=== PATIENT | female | born 1990 | race Caucasian/White ===

== ENCOUNTER 2018-08-24 16:35 | Outpatient (CLI) | payer BC ==
[~2018-08-24] VITALS: Ht 149.9 cm; Wt 86.6 kg
[2018-08-24] MEDS ORDERED: FLINTSTONES COM1 CT1 PO (17:00)
== END 2018-08-24 17:45 | disposition home or self-care (01) ==
LOC: LDRO 16:35
DX: O36.8120 Decreased fetal movements, second trimester, not applicable or unspecified (principal); Z3A.24 24 weeks gestation of pregnancy

== ENCOUNTER 2018-10-21 12:25 | Outpatient (CLI) | payer BC ==
[~2018-10-21] VITALS: Ht 147.3 cm; Wt 92.7 kg
[~2018-10-21 12:25] MED LIST: FLINTSTONES COM1 CT1 PO
[2018-10-21 12:35] VITALS: BP 123/60; PULSE 96; TEMP 98.2
--- NOTE | 2018-10-21 12:51 | NUR ---
Patient ambulatory to unit accompanied by spouse. Patient states that this morning she was coughing and noticed vaginal leaking and has since felt wet. Patient states she currently has Influenza A. Patient sounds hoarse. Assessment completed. Patient states baby has been active and denies vaginal bleeding. FHR and contraction monitors placed and explained. SVE cervix closed/thick, amniotest negative. Patient coughs during SVE and no leaking noted on glove. Patient state she has been having some contractions and her lower back hurts. Will call for further orders.
--- NOTE | 2018-10-21 13:10 | NUR ---
1310: Infant very active while trying to trace FHR. FHR monitors adjusted and tracing well. 1350: Patient off monitors. Discharge instructions reviewed with patient and verbalizes understanding.
[2018-10-21 13:50] VITALS: BP 130/69; PULSE 91
== END 2018-10-21 13:55 | disposition home or self-care (01) ==
LOC: LDRO 12:25
DX: O98.513 Other viral diseases complicating pregnancy, third trimester (principal); J09.X2 Influenza due to identified novel influenza A virus with other respiratory manifestations; Z3A.34 34 weeks gestation of pregnancy

== ENCOUNTER 2018-11-11 14:46 | Outpatient (CLI) | payer BC ==
[~2018-11-11] VITALS: Ht 147.3 cm; Wt 93.2 kg
--- NOTE | 2018-11-11 14:55 | NUR ---
Patient onto unit via wheelchair for labor check with report of painful contractions "every five minutes". Patient reports good movement, denies vaginal bleeding or leaking of fluid. EFMs on, VS taken. SVE /-2 per this RN. Assessment completed by Samantha KEY. Will continue to monitor and notify for further orders.
[2018-11-11 14:58] VITALS: BP 117/59; PULSE 100; TEMP 97.7
[2018-11-11] MEDS ORDERED: PROAIR HFA0.09 MG/AC IH (15:04)
[2018-11-11] MEDS ORDERED: PRENATAL MVI PO (15:05)
[2018-11-11 15:30] VITALS: BP 117/59; PULSE 100; TEMP 97.7
[2018-11-11 16:00] VITALS: BP 127/59; PULSE 93
--- NOTE | 2018-11-11 16:10 | NUR ---
JEANE unchanged. Discharge orders received from . Discharge instructions and return labor precautions reviewed with patient and . Questions answered. Patient ambulatory off of unit at this time.
== END 2018-11-11 16:10 | disposition home or self-care (01) ==
LOC: LDRO 14:46
DX: O62.9 Abnormality of forces of labor, unspecified (principal); Z3A.37 37 weeks gestation of pregnancy

== ENCOUNTER → 2018-11-11 23:21 | Outpatient (CLI) | payer BC ==
[~2018-11-11] VITALS: Ht 149.9 cm; Wt 93.2 kg
--- NOTE | 2018-11-11 21:15 | NUR ---
Pt arrived on the unit with complaints of contractions "every 3 mins", pt denies any leaking of fluid or vaginal bleeding and reports normal movement. EFM and toco monitors placed. SVE by this RN /3. Vital signs WNL. Plan of care for labor assessment reviewed.
[2018-11-11 21:24] VITALS: BP 125/87; PULSE 102; TEMP 97.9
--- NOTE | 2018-11-11 22:05 | NUR ---
Spoke with Dr. Wang for an update on pt's status. FHR tracing, ctx pattern and SVE reviewed. Orders for tylenol and benadryl received. See EMAR for details.
--- NOTE | 2018-11-11 22:35 | NUR ---
SVE done with no change. Orders for discharge home received. Information reviewed with pt and at the bedside. Both verbalized an understanding, agree with the plan and state no questions.
[~2018-11-11 23:21] MED LIST changes: +PRENATAL MVI PO; +PROAIR HFA0.09 MG/AC IH
== END | disposition home or self-care (01) ==
LOC: LDRO 21:05
DX: O62.9 Abnormality of forces of labor, unspecified (principal); Z3A.38 38 weeks gestation of pregnancy

== ENCOUNTER 2018-11-19 10:00 | Inpatient (IN) | payer BC | END 2018-11-21 10:35 | disposition home or self-care (01) | DRG 788 | LOC: OB 10:00 | PROVIDERS: ADMIT Obstetrics & Gynecology | PROC: 10D00Z1 Extraction of Products of Conception, Low, Open Approach (ICD-10-PCS; principal; 2018-11-19) | DX: O34.211 Maternal care for low transverse scar from previous cesarean delivery (principal); Z3A.39 39 weeks gestation of pregnancy; Z37.0 Single live birth; O99.824 Streptococcus B carrier state complicating childbirth; O99.284 Endocrine, nutritional and metabolic diseases complicating childbirth; E28.2 Polycystic ovarian syndrome ==